=== PATIENT | male | born 2000 | race Caucasian/White ===

== ENCOUNTER 2024-06-19 00:35 | Emergency (ER) | payer BC, SELFPAY ==
--- NOTE | ~2024-06-19 | CT_ITS ---
CT of the Abdomen and Pelvis: Indication: Abdominal pain Technique: 2.5 mm axial scans were obtained through the abdomen and pelvis following intravenous adm inistration of 100 cc of Omnipaque 350. Dose reduction technique was used on this scan by utilizing a utomated exposure control and iterative reconstruction technique. The dose-length product (DLP) was 4 26.58 mGy-cm. Findings: Scans through the lung bases are unremarkable. The liver, spleen, pancreas, gallbladder, adrenals and kidneys are within normal limits. No evidence of aortic aneurysm. No lymphadenopathy. No bowel obstruction or bowel wall thickening. There is no evidence to suggest acute appendicitis. Images through the pelvis were performed. Urinary bladder unremarkable. No pelvic mass seen. No ascit es. Impression: No significant abnormalities seen. Reviewed, dictated and finalized at [facility]. GER CONSUMER Impression: No significant abnormalities seen.
[2024-06-19 00:36] VITALS: BP 122/74; PULSE 69; RESP 16; TEMP 35.2; O2SAT 100
[2024-06-19 01:07] LABS: Alanine Aminotransferase 30 U/L (6-50); Albumin Level 5.1 g/dL (3.5-5.1); Alkaline Phosphatase 75 U/L (38-126); Anion Gap 7 mmol/L (4-12); Aspartate Amino Transferase 25 U/L (17-59); Bilirubin,Total 0.8 mg/dL (0.2-1.3); Blood Urea Nitrogen 13 mg/dL (9-20); Calcium 10.1 mg/dL (8.4-10.2); Carbon Dioxide 28 mmol/L (22-30); Chloride 100 mmol/L (98-107); Estimated CRCL calculation 111 ml/min; Estimated Glomerular Filt Rate > 60; Glucose 137 mg/dL (65-110); Lipase 20 U/L (23-300); Potassium 4.1 mmol/L (3.4-5.0); Sodium 135 mmol/L (137-145)
[2024-06-19] MEDS: ONDANSETRON INJ 4 MG/2 ML VIAL IV PUSH (01:11)
[2024-06-19] MEDS: SODIUM CHLORIDE 0.9% IV 1,000 ML 999 ML IV CONT ×2 (01:11→02:24)
[2024-06-19 01:12] LABS: Basophils Absolute Auto 0.1 K/mm3 (0.0-0.1); Basophils Percent Auto 0.3 % (0.2-1.2); Eosinophils Absolute Auto 0.1 K/mm3 (0-0.3); Eosinophils Percent Auto 0.5 % (0-4.4); Hematocrit 46.5 % (42.0-52.0); Hemoglobin 16.2 g/dL (14.0-18.0); Immature Granulocyte Absolute 0.11 K/mm3 (0.00-0.031); Immature Granulocyte Percent A 0.7 % (0-0.5); Lymphocytes Absolute Auto 1.32 K/mm3 (0.9-3.2); Lymphocytes Percent Auto 8.9 % (18.3-44.2); Mean Corpuscular HGB Conc 34.8 g/dl (32-36); Mean Corpuscular Hemoglobin 30.9 pg (26-34); Mean Corpuscular Volume 88.6 fl (80-100); Mean Platelet Volume 10.2 fl (7.4-10.4); Monocytes Absolute Auto 0.7 K/mm3 (0.1-0.6); Monocytes Percent Auto 4.7 % (2.6-8.5); Neutrophils Absolute Auto 12.6 K/mm3 (1.3-6.7); Neutrophils Percent Auto 84.9 % (45.5-73.1); Platelet Count Result 311 k/mm3 (150-375); Red Blood Count 5.25 M/mm3 (4.6-6.20); Red Cell Distribution Width 12.2 % (11.5-14.5); White Blood Count 14.9 K/mm3 (4.5-10.0)
[2024-06-19 01:22] LABS: Strep Group A RT-PCR NOT DETECTED (Negative)
--- NOTE | 2024-06-19 01:25 | ED_ITS ---
HPI - General Adult General Chief complaint: Nausea/Vomiting/Diarrhea Stated complaint: fever, vomiting Time Seen by Provider: 06/19/24 00:37 History of Present Illness HPI narrative: Patient is a 24-year-old male who presents to the emergency department this evening complaining of nausea, vomiting and epigastric since last night. Patient states that he has vomited everything up and now the only thing that is coming out is a bile. Denies any constipation or diarrhea, feels as though he was feverish at home but no documented fevers. Denies any chest pain or shortness of breath, denies any dysuria or hematuria and denies any sick contacts at home. No additional symptoms or concerns at this time. Patient does admit to smoking marijuana daily. Related Data Allergies Allergy/AdvReac Type Severity Reaction Status Date / Time No Known Drug Allergies Allergy Unknown Verified 08/20/14 13:43 Review of Systems 2 Review of Systems: All systems are reviewed and are negative unless stated otherwise in the HPI. Exam 2 Narrative: General: Alert, awake, afebrile, in no acute distress, dry heaving. HEENT: PERRL, no rhinorrhea, no post nasal drip, oropharynx clear. Neck: Trachea midline, no JVD, no lymphadenopathy. Cardiovascular: Regular rate and rhythm, no murmurs, rubs or gallops, no peripheral edema. Respiratory: Clear to auscultation bilaterally, no tachypnea, no wheezing, no rhonchi, no rubs, no respiratory distress. Abdomen: Soft, nontender, nondistended, no rebound, no guarding, no peritoneal signs. Musculoskeletal: No joint swelling or deformity, normal muscle tone. Skin: No rashes or petechia, no signs of infection. Psychiatric: Alert and oriented, normal behavior and judgment for situation. Neurological: Alert and oriented to person, place, and time. Follows all commands. No focal deficits, speech is clear and fluent. Course Vital Signs Vital signs: Vital Signs Temperature 95.4 F L 06/19/24 00:36 Pulse Rate 69 06/19/24 00:36 Respiratory Rate 16 06/19/24 00:36 Blood Pressure 122/74 06/19/24 00:36 Pulse Oximetry 100 06/19/24 00:36 Temperature 97.8 F 06/19/24 01:46 Pulse Rate 60 12/12/24 04:25 Respiratory Rate 15 06/19/24 04:25 Blood Pressure 118/60 06/19/24 04:25 Pulse Oximetry 100 06/19/24 04:25 Medical Decision Making MDM Narrative Medical decision making narrative: The patient was evaluated by myself in the emergency department. History is obtained from patient who is an independent historian and physical exam was performed. External medical records were reviewed at this time. IV was established and pertinent tests were ordered. Patient was administered 2 L IV fluid bolus with normal saline, 25 mg of IV Benadryl, 10 mg of IV Reglan, 10 mg of IV Compazine and 4 mg of IV Zofran for nausea and vomiting. Laboratory results obtained revealing a leukocytosis of 14.9, otherwise unremarkable. Viral swabs negative. Imaging studies obtained included CT abdomen and pelvis with IV contrast which was independently interpreted by me revealing no acute process, which is pending final radiology interpretation. Differential diagnosis considerations include cyclical vomiting syndrome, gastroenteritis, peptic ulcer disease, pancreatitis. Comorbidities impacting this visit include daily marijuana use. I have evaluated and discussed social determinants of health with the patient that could potentially impact subsequent diagnosis and treatment plans. On repeat assessment of the patient, reevaluation revealed that the patient is doing well and is in no acute distress. Patient symptoms have improved since he arrived to our emergency department. Repeat vital signs were all reviewed and noted to be stable. Differential diagnosis and treatment plan were discussed with the patient at bedside. Patient agrees with discussion and after shared medical decision making agrees with discharge. All questions were answered to the patient's satisfaction. Patient will follow up with his PCP in 3-5 days. Patient was provided with strict return precautions and instructed to return to the emergency department if any new or worsening symptoms develop. The patient was discharged in stable condition. Vital Signs Vital Signs: Vital Signs Temperature 95.4 F L 06/19/24 00:36 Pulse Rate 69 06/19/24 00:36 Respiratory Rate 16 06/19/24 00:36 Blood Pressure 122/74 06/19/24 00:36 Pulse Oximetry 100 06/19/24 00:36 Temperature 97.8 F 06/19/24 01:46 Pulse Rate 60 06/19/24 04:25 Respiratory Rate 15 06/19/24 04:25 Blood Pressure 118/60 06/19/24 04:25 Pulse Oximetry 100 06/19/24 04:25 Lab Data 06/19/24 00:51 06/19/24 00:51 Labs: Lab Results 06/19/24 Range/Units 00:51 WBC 14.9 H (4.5-10.0) K/mm3 RBC 5.25 (4.6-6.20) M/mm3 Hgb 16.2 (14.0-18.0) g/dL Hct 46.5 (42.0-52.0) % MCV 88.6 (80-100) fl MCH 30.9 (26-34) pg MCHC 34.8 (32-36) g/dl RDW 12.2 (11.5-14.5) % Plt Count 311 (150-375) k/mm3 MPV 10.2 (7.4-10.4) fl Immature Gran % (Auto) 0.7 H (0-0.5) % Neut % (Auto) 84.9 H (45.5-73.1) % Lymph % (Auto) 8.9 L (18.3-44.2) % [place] % (Auto) 4.7 (2.6-8.5) % Eos % (Auto) 0.5 (0-4.4) % Baso % (Auto) 0.3 (0.2-1.2) % Lymph # (Auto) 1.32 (0.9-3.2) K/mm3 [place] # (Auto) 0.7 H (0.1-0.6) K/mm3 Eos # (Auto) 0.1 (0-0.3) K/mm3 Baso # (Auto) 0.1 (0.0-0.1) K/mm3 Abs Immat Gran (auto) 0.11 H (0.00-0.031) K/mm3 Absolute Neuts (auto) 12.6 H (1.3-6.7) K/mm3 Absolute Nucleated RBC 0.000 (0.0-0.012) K/mm3 Nucleated RBC % 0.0 (0.0-0.2) % Sodium 135 L (137-145) mmol/L Potassium 4.1 (3.4-5.0) mmol/L Chloride 100 (98-107) mmol/L Carbon Dioxide 28 (22-30) mmol/L Anion Gap 7 (4-12) mmol/L BUN 13 (9-20) mg/dL Creatinine 1.10 (0.7-1.3) mg/dL Estim Creat Clear Calc 111 ml/min Estimated GFR > 60 (59 - ) Glucose 137 H (65-110) mg/dL Calcium 10.1 (8.4-10.2) mg/dL Total Bilirubin 0.8 (0.2-1.3) mg/dL AST 25 (17-59) U/L ALT 30 (6-50) U/L Alkaline Phosphatase 75 (38-126) U/L Total Protein 9.0 H (6.3-8.2) g/dL Albumin 5.1 (3.5-5.1) g/dL Lipase 20 L (23-300) U/L Influenza A (RT-PCR) Negative (Negative) Influenza B (RT-PCR) Negative (Negative) RSV (RT-PCR) Negative (Negative) SARS-CoV-2 RNA (RT-PCR) Negative (Negative) Group A Strep (PCR) Not detected (Negative) Discharge Plan Discharge Clinical Impression: Cyclical vomiting syndrome Patient Disposition: Home, Self-Care Condition: Improved Instructions: Antibiotic Form, Acute Nausea and Vomiting (ED), Cyclic Vomiting Syndrome (ED) Additional Instructions: Please follow-up with your family doctor within the next 3-5 days. Return to the ED if any new or worsening symptoms develop. Patient Language: German Follow-up/Referrals: PHYSICIAN,[employer] [Primary Care Provider] - 1 Week Time of Disposition: 05:07
--- NOTE | 2024-06-19 01:27 | ED.GENADULT ---
HPI - General Adult General Chief complaint: Nausea/Vomiting/Diarrhea Stated complaint: fever, vomiting Time Seen by Provider: 06/19/24 00:37 History of Present Illness HPI narrative: Patient is a 24-year-old male who presents to the emergency department this evening complaining of nausea, vomiting, and sore throat since yesterday. Patient states that he has felt feverish but did not actually take his temperature. Admits to abdominal pain, denies any chest pain or shortness of breath, denies any urinary symptoms including dysuria or hematuria and denies any sick contacts at home. No additional or concerns at this time. Related Data Allergies Allergy/AdvReac Type Severity Reaction Status Date / Time No Known Drug Allergies Allergy Unknown Verified 08/20/14 13:43 Review of Systems Review of Systems: All systems are reviewed and are negative unless stated otherwise in the HPI. Exam Narrative: General: Alert, awake, afebrile, in no acute distress. HEENT: PERRL, no rhinorrhea, no post nasal drip, oropharynx clear. Neck: Trachea midline, no JVD, no lymphadenopathy. Cardiovascular: Regular rate and rhythm, no murmurs, rubs or gallops, no peripheral edema. Respiratory: Clear to auscultation bilaterally, no tachypnea, no wheezing, no rhonchi, no rubs, no respiratory distress. Abdomen: Soft, nontender, nondistended, no rebound, no guarding, no peritoneal signs. Musculoskeletal: No joint swelling or deformity, normal muscle tone. Skin: No rashes or petechia, no signs of infection. Psychiatric: Alert and oriented, normal behavior and judgment for situation. Neurological: Alert and oriented to person, place, and time. Follows all commands. No focal deficits, speech is clear and fluent. Course Vital Signs Vital signs: Vital Signs Temperature 95.4 F L 06/19/24 00:36 Pulse Rate 69 06/19/24 00:36 Respiratory Rate 16 06/19/24 00:36 Blood Pressure 122/74 06/19/24 00:36 Pulse Oximetry 100 06/19/24 00:36 Temperature 97.8 F 06/19/24 01:46 Pulse Rate 60 06/19/24 04:25 Respiratory Rate 15 06/19/24 04:25 Blood Pressure 118/60 06/19/24 04:25 Pulse Oximetry 100 06/19/24 04:25 Medical Decision Making MDM Narrative Medical decision making narrative: The patient was evaluated by myself in the emergency department. History is obtained from patient who is an independent historian and physical exam was performed. External medical records were reviewed at this time. IV was established and pertinent tests were ordered. Patient was administered IV fluids, and nausea medications with improvement of his symptoms. Laboratory results obtained revealing leukocytosis of 14.9, otherwise unremarkable. Viral swabs negative for COVID/influenza/ RSV. Imaging studies obtained included CT abdomen and pelvis with IV contrast which was independently interpreted by me revealing no acute process, which is pending final radiology interpretation. Differential diagnosis considerations include pancreatitis, appendicitis, cholecystitis, gastroenteritis, cyclical vomiting syndrome, dehydration, electrolyte derangements. Comorbidities impacting this visit include none. I have evaluated and discussed social determinants of health with the patient that could potentially impact subsequent diagnosis and treatment plans. On repeat assessment of the patient, reevaluation revealed that the patient is doing well and is in no acute distress. Patient symptoms have improved since he arrived to our emergency department. Repeat vital signs were all reviewed and noted to be stable. Differential diagnosis and treatment plan were discussed with the patient at bedside. Patient agrees with discussion and after shared medical decision making agrees with discharge. All questions were answered to the patient's satisfaction. Patient will follow up with his PCP in 3-5 days. Patient was provided with strict return precautions and instructed to return to the emergency department if any new or worsening symptoms develop. The patient was discharged in stable condition. Vital Signs Vital Signs: Vital Signs Temperature 95.4 F L 06/19/24 00:36 Pulse Rate 69 06/19/24 00:36 Respiratory Rate 16 06/19/24 00:36 Blood Pressure 122/74 06/19/24 00:36 Pulse Oximetry 100 06/19/24 00:36 Temperature 97.8 F 06/19/24 01:46 Pulse Rate 60 06/19/24 04:25 Respiratory Rate 15 06/19/24 04:25 Blood Pressure 118/60 06/19/24 04:25 Pulse Oximetry 100 06/19/24 04:25 Lab Data 06/19/24 00:51 06/19/24 00:51 Labs: Lab Results 06/19/24 Range/Units 00:51 WBC 14.9 H (4.5-10.0) K/mm3 RBC 5.25 (4.6-6.20) M/mm3 Hgb 16.2 (14.0-18.0) g/dL Hct 46.5 (42.0-52.0) % MCV 88.6 (80-100) fl MCH 30.9 (26-34) pg MCHC 34.8 (32-36) g/dl RDW 12.2 (11.5-14.5) % Plt Count 311 (150-375) k/mm3 MPV 10.2 (7.4-10.4) fl Immature Gran % (Auto) 0.7 H (0-0.5) % Neut % (Auto) 84.9 H (45.5-73.1) % Lymph % (Auto) 8.9 L (18.3-44.2) % [place] % (Auto) 4.7 (2.6-8.5) % Eos % (Auto) 0.5 (0-4.4) % Baso % (Auto) 0.3 (0.2-1.2) % Lymph # (Auto) 1.32 (0.9-3.2) K/mm3 [place] # (Auto) 0.7 H (0.1-0.6) K/mm3 Eos # (Auto) 0.1 (0-0.3) K/mm3 Baso # (Auto) 0.1 (0.0-0.1) K/mm3 Abs Immat Gran (auto) 0.11 H (0.00-0.031) K/mm3 Absolute Neuts (auto) 12.6 H (1.3-6.7) K/mm3 Absolute Nucleated RBC 0.000 (0.0-0.012) K/mm3 Nucleated RBC % 0.0 (0.0-0.2) % Sodium 135 L (137-145) mmol/L Potassium 4.1 (3.4-5.0) mmol/L Chloride 100 (98-107) mmol/L Carbon Dioxide 28 (22-30) mmol/L Anion Gap 7 (4-12) mmol/L BUN 13 (9-20) mg/dL Creatinine 1.10 (0.7-1.3) mg/dL Estim Creat Clear Calc 111 ml/min Estimated GFR > 60 (59 - ) Glucose 137 H (65-110) mg/dL Calcium 10.1 (8.4-10.2) mg/dL Total Bilirubin 0.8 (0.2-1.3) mg/dL AST 25 (17-59) U/L ALT 30 (6-50) U/L Alkaline Phosphatase 75 (38-126) U/L Total Protein 9.0 H (6.3-8.2) g/dL Albumin 5.1 (3.5-5.1) g/dL Lipase 20 L (23-300) U/L Influenza A (RT-PCR) Negative (Negative) Influenza B (RT-PCR) Negative (Negative) RSV (RT-PCR) Negative (Negative) SARS-CoV-2 RNA (RT-PCR) Negative (Negative) Group A Strep (PCR) Not detected (Negative) Discharge Plan Discharge Clinical Impression: Cyclical vomiting syndrome Patient Disposition: Home, Self-Care Condition: Improved Instructions: Antibiotic Form, Acute Nausea and Vomiting (ED), Cyclic Vomiting Syndrome (ED) Additional Instructions: Please follow-up with your family doctor within the next 3-5 days. Return to the ED if any new or worsening symptoms develop. Patient Language: Yoruba Follow-up/Referrals: PHYSICIAN,[employer] [Primary Care Provider] - 1 Week Time of Disposition: 05:07
[2024-06-19 01:33] LABS: Influenza A QL RT-PCR Negative (Negative); Influenza B QL RT-PCR Negative (Negative); RSV RNA, RT-PCR Negative (Negative); SARS-CoV-2 RNA PCR Negative (Negative)
[2024-06-19] MEDS: METOCLOPRAMIDE HCL INJ 10 MG/2 ML VIAL IV PUSH (01:36)
[2024-06-19] MEDS: diphenhydrAMINE HCl INJ 50 MG/ML VIAL 25 MG IV PUSH (01:36)
[2024-06-19 01:46] VITALS: PULSE 69; RESP 15; TEMP 36.6; O2SAT 100
[2024-06-19] MEDS: HALOPERIDOL LACTATE 5 MG/ML VIAL (02:00)
[2024-06-19] MEDS: PROCHLORPERAZINE EDISYLATE 10 MG/2 ML VIAL IV PUSH (04:07)
[2024-06-19 04:25] VITALS: BP 118/60; PULSE 60; RESP 15; O2SAT 100
== END 2024-06-19 05:20 | disposition home or self-care (01) ==
PROVIDERS: Emergency Provider Emergency Medicine
DX: R11.15 Cyclical vomiting syndrome unrelated to migraine (principal); Z20.822 Contact with and (suspected) exposure to COVID-19
CPT/HCPCS: 36415; 74177; 80053; 83690; 85025; 87637; 87651; 96361; 96374; 96375; 99284; J0780; J1200; J1630; J2405; J2765; J7030; Q9967